=== PATIENT | male | born 1995 | race Caucasian/White ===

== ENCOUNTER 2018-04-21 22:23 | Emergency (ER) | payer OTHER, SELFPAY ==
[2018-04-21 22:30] VITALS: BP 146/79; PULSE 81; RESP 16; TEMP 37.1; O2SAT 99; BMI 26.6
--- NOTE | 2018-04-21 22:51 | ED.URI ---
HPI - URI/Sore Throat General Chief Complaint: Upper Respiratory Symptoms Stated Complaint: THINKS HE HAS THE FLU Time Seen by Provider: 04/21/18 22:42 Source: patient Mode of arrival: ambulatory Limitations: no limitations History of Present Illness HPI Narrative: patient is a 23-year-old male who presents with sore throat and upper respiratory like symptoms ongoing for the last month. He said initially he just thought it was a cold. However his throat has gotten much worse over last few days. he has had some increasing shortness of breath as well. He tried to go snowboarding yesterday and felt like his lungs are on fire. He denies any cough. He has some left upper quadrant rib pain. He feels like it is gas pain. MD Complaint: sore throat Related Data Allergies Allergy/AdvReac Type Severity Reaction Status Date / Time No Known Drug Allergies Allergy Verified 04/21/18 22:36 Review of Systems Review of Systems ROS Unobtainable: All systems reviewed & are unremarkable except as noted in HPI and below Constitutional Denies chills, Denies fever(s), Denies lethargy and Denies weakness ENT Ears, Nose, Mouth, and Throat: Reports as per HPI Respiratory Reports as per HPI Gastrointestinal Gastrointestinal: Reports abdominal pain ( Left upper quadrant) Genitourinary Denies hematuria, Denies flank pain, Denies urinary incontinence and Denies urinary urgency Musculoskeletal Denies back pain, Denies muscle weakness, Denies numbness and Denies tingling Integumentary/Breasts Denies pruritus, Denies erythema, Denies rash and Denies wounds Neurologic Denies numbness, Denies tingling and Denies weakness [facility] Medical History Patient denies significant medical history (Acute) Exam Initial Vital Signs Initial Vital Signs: Vital Signs Temperature 98.7 F 04/21/18 22:30 Pulse Rate 81 04/21/18 22:30 Respiratory Rate 16 04/21/18 22:30 Blood Pressure 146/79 H 04/21/18 22:30 Pulse Oximetry 99 04/21/18 22:30 GENERAL: Well-appearing, well-nourished and in no acute distress. HEENT: Head atraumatic,EOMI, pupils reactive, face symmetric, moist mucous membranes EARS: Tympanic membranes visualized, no erythema or bulging, no hemotympanum PHARYNX: pharynx is erythematous with left exudative tonsil no uvula deviation no hard palate swelling CARDIOVASCULAR: Regular rate and rhythm without murmurs, rubs or gallops. RESPIRATORY: Breath sounds equal bilaterally, no wheezes rales or rhonchi. ABDOMEN: Soft. Normoactive bowel sounds all 4 quadrants. No guarding or rebound. Minimal splenomegaly appreciated in left upper quadrant minimal tenderness in left upper quadrant EXTREMITIES: Normal range of motion, no clubbing or edema. Neurovascularly intact NEUROLOGICAL: Alert and oriented x4.Normal gait and speech. SKIN: Warm, dry, no laceration, no petechiae, no rashes or lesions. Course Orders Ordered: ED Orders 04/21/18 23:17 Monotest Stat Vital Signs - 8 hr 04/21/18 22:30 Temperature 98.7 F Pulse Rate 81 Respiratory Rate 16 Blood Pressure 146/79 H Pulse Oximetry 99 MDM - URI/Sore Throat Lab Data Attestation: I reviewed the patient's lab results. Lab Results 04/21/18 Range/Units 23:17 Monoscreen Positive H (Negative) Point of Care Testing Rapid Strep A Negative MDM Narrative Medical decision making narrative: Patient is positive for mono. I discussed with him the results. He appears nontoxic. Vitals are within normal limits. Discharge Plan Departure Patient Disposition: Home Clinical Impression: Mononucleosis Qualifiers: Infectious mononucleosis etiology: unspecified organism Infectious mononucleosis complication: without complication Qualified Code(s): B27.90 - Infectious mononucleosis, unspecified without complication Discharge Date/Time: 04/21/18 23:54 Interventions: ED Discharge Assessment Last Done: 04/21/18 23:54 Instructions: DI for Mononucleosis-Adult Activity Restrictions/Additional Instructions: *You have been diagnosed with mononucleosis *What to do: This is a virus that causes fatigue and tiredness for a number of weeks. It is contagious by kissing and sharing saliva. Rest, hydrate. No high contact sports. *Continue to take medications as directed Motrin 600 mg every 6-8 hours if needed for pain or fever Tylenol 650 mg every 4-6 hours if needed for pain *Follow up with your primary care provider in 2-3 days *Return to ER if you should have increased left upper quadrant pain, decreased oral intake or any new, worsening or concerning symptoms Referrals: [facility] [Provider Group]
[2018-04-21 23:30] LABS: Monotest Positive (Negative)
== END 2018-04-21 23:54 | disposition home or self-care (01) ==
PROVIDERS: Emergency Provider Emergency Medicine
DX: B27.90 Infectious mononucleosis, unspecified without complication (principal)
CPT/HCPCS: 36415; 86318; 87880; 99282; 99283

== ENCOUNTER → 2020-04-29 16:01 | Outpatient (CLI) | payer OTHER, SELFPAY ==
--- NOTE | 2020-04-29 | DI.ECHO.S_ITS ---
[facility]---------+ [facility] +---------+ : : [address] : : : : [id number] : : : : Phone: [phone] Echocardiogram Report + + :Name: AYAN GARRIDO Study Date: 04/29/2020 Height: 64 in : :[facility] ReadingLocation: Weight: 160 lb : : Gender: Male BSA: 1.8 m2 : :: 1995 Age: 25 yrs BP: 164/100 mmHg: :Reason For Study: ENCOUNTER FOR GENERAL ADULT MEDICAL : :EXAMINATION : :Ordering Physician: NICK, : :IBIS Performed By: Katelyn Benson : :Referring: IBIS ROMERO : + + Interpretation Summary The left ventricle is normal in size and wall thickness. Left ventricular systolic function appears normal without focal wall motion abnormalities. The ejection fraction is estimated to be 55-60%. Diastolic parameters suggest probable normal left ventricular diastolic function and normal filling pressures. The right ventricle is normal in size and function. Pulmonary artery pressures cannot be estimated because of the lack of a measurable TR jet velocity but the IVC suggests a CVP of around 3 mmHg. Both atria are normal in size. There is no significant valvular heart disease. The aortic root is normal size. Procedure: A two-dimensional transthoracic echocardiogram with color flow and Doppler was performed. The study quality was technically adequate. There is no prior echocardiogram noted for this patient. The patient was in sinus rhythm with heart rates between 60-95 bpm during the exam. Left Ventricle: The left ventricle is normal in size and wall thickness. Left ventricular systolic function appears normal without focal wall motion abnormalities. The ejection fraction is estimated to be 55-60%. Diastolic parameters suggest probable normal left ventricular diastolic function and normal filling pressures. Right Ventricle: The right ventricle is normal in size and function. Atria: Both atria are normal in size. There is no Doppler evidence for an interatrial shunt. Mitral Valve: The mitral valve is normal in structure and function. There is trace mitral regurgitation. Aortic Valve: The aortic valve is trileaflet. The aortic valve opens well. There is no aortic valve stenosis. No aortic regurgitation is present. Tricuspid Valve: The tricuspid valve is normal in structure and function. There is trace tricuspid regurgitation. Pulmonary artery pressures cannot be estimated because of the lack of a measurable TR jet velocity but the IVC suggests a CVP of around 3 mmHg. Pulmonic Valve: The pulmonic valve leaflets are thin and pliable; valve motion is normal. There is no pulmonic valvular regurgitation. There is no significant valvular heart disease. Great Vessels: The aortic root is normal size. The dimensions of the ascending aorta are normal. The IVC is of normal diameter and collapses greater than 50% with a sniff. This suggests a low right atrial pressure of 3 mm Hg. Pericardium/ Pleura There is no pericardial effusion. There is no pleural effusion. MMode/2D Measurements & Calculations LVIDd: 5.1 cm LVOT diam: 2.0 cm LVIDs: 3.6 cm Ao root diam: 2.8 cm FS: 29.5 % asc Aorta Diam: 2.9 cm EPSS: 1.0 cm Ao Arch Diam (Prox Trans): 2.5 cm IVSd: 1.0 cm LVPWd: 1.0 cm LV ribera. diameter/BSA (cm/m^2): 2.9 LV sys. diameter/BSA (cm/m^2): 2.0 LA A2 area: 20.2 cm2 RA long axis: 4.5 cm LA A4 area: 14.8 cm2 RA area: 14.7 cm2 LA length (vol): 4.4 cm RA vol: 41.0 ml LA vol: 57.2 ml RA : 23.0 ml/m2 LA vol index: 32.1 ml/m2 IVC diam: 1.7 cm RVD1 (basal): 3.2 cm TAPSE: 2.5 cm Doppler Measurements & Calculations Ao V2 max: 126.7 cm/sec LVOT Max Curt: 98.3 cm/sec Ao V2 mean: 86.7 cm/sec LV V1 max P.9 mmHg Ao max P.4 mmHg LV V1 VTI: 18.9 cm Ao mean P.3 mmHg ROBIN(I,D): 2.3 cm2 Ao V2 VTI: 24.7 cm ROBIN(V,D): 2.4 cm2 sev ratio: 0.76 ROBIN indexed to BSA (cm^2/m^2): 1.3 MV E max curt: 82.2 cm/sec PA V2 max: 80.1 cm/sec MV A max curt: 67.9 cm/sec PA V2 mean: 50.9 cm/sec MV E/A: 1.2 PA mean P.2 mmHg Med Peak E' Curt: 12.2 cm/sec PA pr(Accel): 27.6 mmHg E/E' med: 6.7 Lat Peak E' Curt: 15.5 cm/sec E/E' lat: 5.3 E/e' average: 6.0 MV dec time: 0.19 sec SV(OT): 57.7 ml Reading Physician:05:55 PM
== END ==
PROVIDERS: Referring Provider Student in an Organized Health Care Education/Training Program; Visit Provider Student in an Organized Health Care Education/Training Program
DX: Z00.00 Encounter for general adult medical examination without abnormal findings (principal)
CPT/HCPCS: 93306